=== PATIENT | female | born 1985 ===

== ENCOUNTER 2018-02-20 14:15 | Inpatient (IN) | payer OTHER ==
[~2018-02-20] VITALS: Ht 167.6 cm; Wt 3.6 kg
[~2018-02-20 14:15] MED LIST: AMOXICILLIN250 MG
[2018-03-14] MEDS ORDERED: PRENATAL TABLE1 EAC1 PO (18:21)
[2018-03-14] MEDS ORDERED: ZANTAC150 MG PO (18:22)
== END 2018-03-17 10:59 | DRG 766 ==
LOC: OB/GYN 14:15 → LDR 03-14 15:20 → OB/GYN 03-14 17:31
PROVIDERS: Obstetrics & Gynecology
PROC: 3E0P7VZ Introduction of Hormone into Female Reproductive, Via Natural or Artificial Opening (ICD-10-PCS; 2018-03-14)
PROC: 4A1HXCZ Monitoring of Products of Conception, Cardiac Rate, External Approach (ICD-10-PCS; 2018-03-14)
PROC: 10D00Z1 Extraction of Products of Conception, Low, Open Approach (ICD-10-PCS; principal; 2018-03-14 17:00)
DX: O77.1 Fetal stress in labor or delivery due to drug administration (principal); Z3A.40 40 weeks gestation of pregnancy; Z37.0 Single live birth

== ENCOUNTER → 2018-03-03 | Outpatient (CLI) | payer OTHER | END | disposition home or self-care (01) | LOC: NST 14:09 | DX: Z34.83 Encounter for supervision of other normal pregnancy, third trimester (principal) ==

== ENCOUNTER 2018-03-06 12:26 | Outpatient (CLI) | payer OTHER | END 2018-03-06 12:48 | disposition home or self-care (01) | LOC: NST 12:26 | DX: Z34.83 Encounter for supervision of other normal pregnancy, third trimester (principal) ==

== ENCOUNTER 2018-03-09 12:02 | Outpatient (CLI) | payer OTHER | END 2018-03-09 12:49 | disposition home or self-care (01) | LOC: NST 12:02 | DX: Z34.83 Encounter for supervision of other normal pregnancy, third trimester (principal) ==

== ENCOUNTER 2018-03-11 12:48 | Outpatient (CLI) | payer OTHER | END 2018-03-11 14:55 | disposition home or self-care (01) | LOC: NST 12:48 | DX: O48.0 Post-term pregnancy (principal); Z34.83 Encounter for supervision of other normal pregnancy, third trimester ==

== ENCOUNTER 2018-03-13 10:38 | Outpatient (CLI) | payer OTHER ==
[2018-03-14] MEDS ORDERED: PRENATAL TABLE1 EAC1 PO (18:21)
[2018-03-14] MEDS ORDERED: ZANTAC150 MG PO (18:22)
== END 2018-03-13 11:21 | disposition home or self-care (01) ==
LOC: NST 10:38
DX: Z34.83 Encounter for supervision of other normal pregnancy, third trimester (principal)